=== PATIENT | male | born 1995 | race Hispanic/Latino ===

== ENCOUNTER 2023-07-19 18:28 | Observation (INO) | payer SELFPAY ==
[2023-07-19] VITALS (7 sets, daily range): BP systolic 86–141; BP diastolic 56–97
[~2023-07-19] VITALS: Ht 167.6 cm; Wt 64.4 kg
[2023-07-19 19:19] LABS: BASO% 0.4 % (0-3); EOS% 0.6 % (0-8); HEMOGLOBIN 14.8 g/dl (14.0-18.0); LYMPH% 35.2 % (15-41); MEAN CELL VOLUME 84.2 fL CALC (80.0-100.0); MEAN CORPUSCULAR HGB 29.7 pG CALC (26.0-32.0); MEAN CORPUSCULAR HGB CONC 35.2 g/dL CAL (32.0-36.0); MONO% 6.9 % (2-13); NEUT# 4.04 thou/uL (1.82-7.42); NEUT% 56.9 % (42-76); RED BLOOD COUNT 4.99 mill/uL (4.70-6.10); RED CELL DISTRI WIDTH 11.4 % (11.5-15.5)
[2023-07-19 19:25] LABS: ALBUMIN 4.8 g/dL (3.2-5.0); ALKALINE PHOSPHATASE 67 u/l (38-126); ANION GAP 16 (6-22 (CALC)); BILIRUBIN, TOTAL 0.4 mg/dL (0.2-1.3); BUN 20 mg/dL (9-20); BUN/CREATININE RATIO 22 (12-20 (CALC)); CALCULATED LDLCHOLESTEROL 97 mg/dL (62-129 (CALC)); CARBON DIOXIDE 24 mmol/l (22-30); CHLORIDE 103 mmol/l (95-108); CHOLESTEROL HDL RATIO 3.8 (<4.4 (CALC)); CREATININE 0.9 mg/dL (0.7-1.3); GFR FOR AFR.AMER. > 60 ML/MIN (>=60 (CALC)); GFR OTHER RACES > 60 ML/MIN (>=60 (CALC)); HDL CHOLESTEROL 42 mg/dL (39.0-59.0); POTASSIUM 3.2 mmol/l (3.5-5.1); SGOT/AST 35 u/l (17-59); SODIUM 139 mmol/l (137-146); TOTAL CHOLESTEROL 158 mg/dl (0-199); TOTAL PROTEIN 7.7 g/dL (6.3-8.2); TOTAL TRIGLYCERIDES 98 mg/dl (0-149); VLDL CHOLESTROL 20 mg/dl (5-56 (CALC))
[2023-07-19 19:32] LABS: INTERNATIONAL NORMALIZED RATIO 1.1 RATIO (0.7-1.3); PROTHROMBIN TIME 10.6 SECONDS (9.0-12.5)
[2023-07-19] MEDS ORDERED: ZOLOFT25 MG PO (21:50)
[2023-07-19] MEDS ORDERED: RISPERIDONE2 MG PO (21:51)
[2023-07-19] MEDS ORDERED: ATIVAN0.5 MG PO (21:53)
[2023-07-19 22:34] LABS: URINE BILIRUBIN - DIPSTICK Negative (NEGATIVE); URINE BLOOD DIPSTICK Negative (NEGATIVE); URINE GLUCOSE - DIPSTICK Negative (NEGATIVE); URINE KETONE 15 mg/dL (NEGATIVE); URINE LEUK ESTERASE Negative (NEGATIVE); URINE NITRITE - DIPSTICK Negative (Negative); URINE PROTEIN - DIPSTICK Negative (NEG-TRACE); URINE UROBILINOGEN - DIPSTICK 0.2 E.U./dL (0.2)
[2023-07-19 22:35] LABS: URINE COLOR Yellow
[2023-07-20] VITALS (13 sets, daily range): BP systolic 89–121; BP diastolic 47–76
[2023-07-20] MEDS ORDERED: SERTRALINE50 MG PO ×2 (03:01→12:02)
[2023-07-20] MEDS ORDERED: RISPERIDONE0.25 MG (03:01)
[2023-07-20] MEDS ORDERED: ATIVAN ORAL2 MG/1 ML PO (03:03)
[2023-07-20 07:11] LABS: HEMATOCRIT 42.4 % (39.0-50.0); HEMOGLOBIN 14.6 g/dl (14.0-18.0); MEAN CELL VOLUME 85.1 fL CALC (80.0-100.0); MEAN CORPUSCULAR HGB 29.3 pG CALC (26.0-32.0); MEAN CORPUSCULAR HGB CONC 34.4 g/dL CAL (32.0-36.0); RED BLOOD COUNT 4.98 mill/uL (4.70-6.10); RED CELL DISTRI WIDTH 11.7 % (11.5-15.5)
[2023-07-20 07:44] LABS: BUN 15 mg/dL (9-20); BUN/CREATININE RATIO 19 (12-20 (CALC)); CARBON DIOXIDE 25 mmol/l (22-30); CHLORIDE 108 mmol/l (95-108); CREATININE 0.8 mg/dL (0.7-1.3); GFR FOR AFR.AMER. > 60 ML/MIN (>=60 (CALC)); GFR OTHER RACES > 60 ML/MIN (>=60 (CALC)); MAGNESIUM 2.3 mg/dL (1.6-2.3); SODIUM 139 mmol/l (137-146)
[2023-07-20 07:47] LABS: ANION GAP 10 (6-22 (CALC))
[2023-07-20] MEDS ORDERED: RISPERIDONE0.25 MG PO (11:53)
[2023-07-20] MEDS ORDERED: XANAX0.5 MG PO (11:56)
== END 2023-07-20 14:00 | disposition home or self-care (01) | DRG 880 ==
LOC: ED 18:28 → MS2 22:54 → ED-I 22:54 → MS2 07-20 14:00
PROVIDERS: Family Medicine; ADMIT Student in an Organized Health Care Education/Training Program; ATTEND Student in an Organized Health Care Education/Training Program
DX: F41.0 Panic disorder [episodic paroxysmal anxiety] (principal); F43.10 Post-traumatic stress disorder, unspecified; T43.506A Underdosing of unspecified antipsychotics and neuroleptics, initial encounter; Z91.128 Patient's intentional underdosing of medication regimen for other reason
CPT/HCPCS: G0378; J1650